=== PATIENT | male | born 1950 | race Caucasian/White ===

== ENCOUNTER → 2019-05-12 10:13 | Outpatient (BNVA) | payer MEDICARE, SELFPAY | PROVIDERS: Family Provider Family Medicine; PCP Family Medicine; Referring Provider Nurse Practitioner Family; Visit Provider Podiatrist Foot & Ankle Surgery | DX: M79.671 Pain in right foot (principal) | CPT/HCPCS: 73630 ==

== ENCOUNTER 2019-05-31 15:50 | Outpatient (CLI) | payer MEDICARE, SELFPAY ==
--- NOTE | 2019-05-31 16:30 | USCV_ITS ---
MaiteLes Age: 68 Gender: M : 1950 Exam Date: 05/31/2019 15:53 Ordering Phys: Cesar Nelson DPM Technologist: Exam Location: [facility] – [place]_ Indication: DIMENISHED PULSES RIGHT LEFT Brachial 127.00 mmHg Brachial 138.00 mmHg Pressure (mmHg) Waveform Pressure (mmHg) Waveform 157.00 Above Knee 137.00 175.00 Below Knee 140.00 172.00 FINAL INSPECTOR 175.00 152.00 DPA 156.00 1.25 Ankle/Brachial Index 1.27 102.00 Pre-Exercise Toe Pressure 101.00 0.74 Pre-Exercise Toe/Brachial Index 0.73 FINDINGS Normal ABIs and TBIs bilaterally Normal PVR waveforms bilaterally CONCLUSIONS No evidence of any significant arterial obstruction, based on the above findings. Dr Ernestina Angel MD [facility] (Electronically Signed) Final Date: 01 June 2019 08:49 S
== END 2019-05-31 15:51 | disposition home or self-care (01) ==
LOC: US 15:51
PROVIDERS: Family Provider Family Medicine; PCP Family Medicine; Visit Provider Podiatrist Foot & Ankle Surgery
DX: I73.9 Peripheral vascular disease, unspecified (principal); R09.89 Other specified symptoms and signs involving the circulatory and respiratory systems
CPT/HCPCS: 93923

== ENCOUNTER 2021-07-25 20:22 | Emergency (ER) | payer MEDICARE, SELFPAY ==
[2021-07-25 21:51] VITALS: BP 145/87; PULSE 62; RESP 20; TEMP 36.7; O2SAT 98; BMI 32.8
--- NOTE | 2021-07-25 22:12 | CTR_ITS ---
PROCEDURE INFORMATION: Exam: CT Abdomen And Pelvis Without Contrast Exam date and time: 07/25/2021 10:45 PM Age: 70 years old Clinical indication: Abdominal pain; Localized; Patient HX: C/O left flank/llq pain with hematuria. History of stones. ; Additional info: Flank pain TECHNIQUE: Imaging protocol: Computed tomography of the abdomen and pelvis without contrast. Radiation optimization: All CT scans at this facility use at least one of these dose optimization techniques: automated exposure control; mA and/or kV adjustment per patient size (includes targeted exams where dose is matched to clinical indication); or iterative reconstruction. COMPARISON: CT Abdomen/Pelvis Renal [id number] 10/27/2016 11:44 AM RADIATION DOSE METRICS: Total DLP (mGy-cm): 1738.1 FINDINGS: Lungs: The visualized lung woodard show mild bibasilar atelectasis. Liver: The liver is normal in size and homogeneous density. In the left liver lobe, there is a 12 mm simple appearing cyst. Gallbladder and bile ducts: The gallbladder is contracted but appears otherwise normal. Pancreas: Normal size and homogeneous density. No ductal dilation. Spleen: Normal. No splenomegaly. Adrenal glands: Normal. No mass. Kidneys and ureters: There is mild left hydronephrosis and proximal hydroureter down to the mid left ureter at the level of the aortic bifurcation and iliac crests, where there is a 6 x 5 mm partially obstructive calculus. In the lower pole left kidney, there are 2 nonobstructive calculi measuring 8 and 7 mm in diameter. Stomach and bowel: There is no evidence of small bowel or colonic obstruction. Appendix: No evidence of appendicitis. Intraperitoneal space: No free air. No significant fluid collection. Vasculature: There is mild atherosclerotic calcification of the abdominal aorta and its branches without aneurysm. Lymph nodes: No enlarged retroperitoneal or mesenteric lymph nodes. Urinary bladder: The bladder shows a normal contour and is free of calcific opacities. Reproductive: The prostate measures 4.6 cm in transverse dimension. Bones/joints: No acute fracture. There is a prominent Schmorl's node on the inferior endplate of L3. Facet arthrosis at L4-L5 and L5-S1. There is mild grade 1 anterolisthesis of L4 on L5. Soft tissues: There are small bilateral nonobstructing inguinal hernias containing adipose tissue. CT/CT kidney stone [id number] IMPRESSION: 1. A 6 x 5 mm partially obstructive calculus in the mid left ureter. 2. Additional nonobstructive 7 and 8 mm calculi in the lower pole of the left kidney. 3. Small bilateral inguinal hernias containing adipose tissue.
[2021-07-25 22:15] VITALS: BP 136/92; PULSE 59; RESP 18; O2SAT 95
--- NOTE | 2021-07-25 22:21 | W.ED.ABDPA2 ---
HPI - Abdominal Pain General: Chief Complaint: Abdominal Pain Stated Complaint: low back pain Time Seen by Provider: 07/25/21 22:08 Source: patient Mode of arrival: ambulatory Limitations: no limitations History of Present Illness: 70-year-old male has had a history of kidney stones in the past he states started having some pain last night did not improve it is worsened throughout the day states pain is a left flank goes in his left groin rates his pain a 7 out of 10 he has had some nausea denies any vomiting has had a hematuria denies any worsening improving factors. Associated Symptoms: Reports hematuria; Denies chills, diarrhea, fever(s), nausea and vomiting Review of Systems Const: Denies: fever(s), chills, body aches or change in appetite Eyes: Denies: blurry vision or eye discomfort ENMT: Denies: throat pain or dental pain Card: Denies: chest pain Resp: Denies: dyspnea GI: Denies: abdominal pain, nausea, vomiting or diarrhea : Reports: flank pain and hematuria Musc: Denies: neck pain or back pain Skin/Breast: Denies: rash Neuro: Denies: headache(s) Psych: Denies: depression Angelito/Lymph: Denies: easy bruising All/Imm: Denies: urticaria PFSH ED PFSH: Medical History ASHD (arteriosclerotic heart disease) Atypical chest pain HTN (hypertension) Hyperlipidemia Uric acid urolithiasis Surgical History S/P rotator cuff repair Family History Father , AGE 50 CAD (coronary artery disease) Myocardial infarction Mother , AGE 60 Diabetes Social History Smoking and tobacco status: never smoked Alcohol intake: never Household members: spouse Marital status: Current occupational status: retired Physical Exam Const: COMMON NORMALS: no acute distress, patient oriented x3 and healthy appearing HENMT: COMMON NORMALS: normocephalic and atraumatic HEAD & SCALP: normocephalic and atraumatic Eye: COMMON NORMALS: Equal, round and reactive pupils present and EOMs intact bilaterally PUPIL: Yes Equal, round and reactive pupils present Neck/C-Spine: COMMON NORMALS: full ROM and supple Chest: COMMONS NORMALS: normal inspection of the chest and normal palpation of entire chest wall Resp: COMMON NORMALS: normal respiratory effort, No retractions, No use of accessory muscles and clear to auscultation bilaterally AUSCULTATION: clear to auscultation bilaterally Cardio: COMMON NORMALS: regular rate, regular rhythm and No murmurs present (Cardio) RATE: regular rate RHYTHM: regular rhythm GI: COMMON NORMALS: Normal to inspection, nondistended, normoactive bowel sounds present, Soft to palpation, non-tender and no masses PALPATION: Yes Soft to palpation Extremity: COMMON NORMALS: normal to inspection and full ROM Neuro: COMMON NORMALS: patient oriented x3, moves all extremities and no focal motor deficits Psych: COMMON NORMALS: mental status grossly normal, Normal thought process present and cooperative THOUGHT PROCESS: Normal thought process present Skin: COMMON NORMALS: no rashes or lesions noted and no wounds GENERAL SKIN EXAM: no rashes or lesions noted Course Vital Signs: Vital signs: Vital Signs Temperature 98.1 F 07/25/21 21:51 Pulse Rate 67 07/25/21 23:56 Respiratory Rate 18 07/25/21 23:56 Blood Pressure 126/80 07/25/21 23:56 Pulse Oximetry 92 07/25/21 23:56 MDM - Abdominal Pain Medical Decision Making Patient presents with a kidney stone his pain is much improved. Has an appoint with Dr. Benítez tomorrow is to follow-up then he is stable for discharge. Lab Data : 07/25/21 22:24 07/25/21 22:24 Labs/Radiology: Radiology Impressions Abdomen/Pelvis CT 07/25/21 22:12 IMPRESSION: 1. A 6 x 5 mm partially obstructive calculus in the mid left ureter. 2. Additional nonobstructive 7 and 8 mm calculi in the lower pole of the left kidney. 3. Small bilateral inguinal hernias containing adipose tissue. Laboratory Results WBC 15.2 10^3/uL (4.0-10.0) H 07/25/21 22:24 RBC 5.81 10^6/uL (4.1-5.3) H 07/25/21 22:24 Hgb 17.9 g/dL (11.7-16.6) H 07/25/21:24 Hct 52.8 % (42.0-52.0) H 07/25/21:24 MCV 90.9 fl (80-94) 07/25/21:24 MCH 30.8 pg (28.0-34.0) 07/25/21:24 MCHC 33.9 g/dL (30.0-36.0) 07/25/21: RDW 13.7 % (12.1-15.1) 07/25/21: Plt Count 137 10^3/cmm (130-400) 07/25/21: MPV 10.8 fL (7.4-10.4) H 07/25/21: Neut % (Auto) 79.6 % 07/25/21: Lymph % (Auto) 10.0 % 07/25/21: [place] % (Auto) 8.9 % 07/25/21: Eos % (Auto) 0.7 % 07/25/21: Baso % (Auto) 0.4 % 07/25/21: Neut # (Auto) 12.06 10^3/uL (1.8-7.7) H 07/25/21: Lymph # (Auto) 1.5 10^3/uL (0.8-4.8) 07/25/21: [place] # (Auto) 1.4 10^3/uL (0.2-0.9) H 07/25/21:24 Eos # (Auto) 0.1 10^3/uL (0.0-0.8) 07/25/21: Baso # (Auto) 0.1 10^3/uL (0.0-0.1) 07/25/21: Nucleated RBC % (auto) 0 % 07/25/21: Nucleated RBCs # 0.0 /100WBC 07/25/21 22:24 Sodium 136 mmol/L (136-145) 07/25/21:24 Potassium 4.0 mmol/L (3.5-5.1) 07/25/21:24 Chloride 102 mmol/L (98-107) 05/12/22 22:24 Carbon Dioxide 22 mmol/L (22-29) 07/25/21 22:24 Anion Gap 16.0 (5-19) 07/25/21 22:24 BUN 27 mg/dL (8-23) H 07/25/21 22:24 Creatinine 1.7 mg/dL (0.7-1.2) H 07/25/21 22:24 GFR Calculation 40.2 mL/min (90-130) L 07/25/21 22:24 Glucose 108 mg/dL (65-115) 07/25/21 22:24 Calculated Osmolality 288 mOsm/kg (285-295) 07/25/21 22:24 Calcium 9.3 mg/dL (8.5-10.5) 07/25/21 22:24 Total Bilirubin 0.7 mg/dL (0.15-1.2) 07/25/21 22:24 AST 26 U/L (0-40) 07/25/21 22:24 ALT 37 U/L (0-41) 07/25/21 22:24 Alkaline Phosphatase 49 IU/L (40-130) 07/25/21 22:24 Total Protein 7.3 g/dL (6.6-8.7) 07/25/21 22:24 Albumin 4.4 g/dL (3.5-5.2) 07/25/21 22:24 Globulin 2.9 g/dL (1.3-4.6) 07/25/21 22:24 Urine Color Brown (Yellow) 07/25/21 23:19 Urine Appearance Cloudy (CLEAR) 07/25/21 23:19 Urine pH 5 (5-7) 07/25/21 23:19 Ur Specific [place] 1.020 (1.005-1.030) 07/25/21 23:19 Urine Protein 1+ (Negative) H 07/25/21 23:19 Urine Glucose (UA) Norm (Normal) 07/25/21 23: Urine Ketones Negative (Negative) 07/25/21 23:19 Urine Blood 3+ (Negative) H 07/25/21 23:19 Urine Nitrate Negative (Negative) 07/25/21 23:19 Urine Bilirubin Neg (Negative) 07/25/21 23: Urine Urobilinogen Norm mg/dL (Negative) 05/12/22 23:19 Ur Leukocyte Esterase Trace (Negative) H 07/25/21 23:19 Urine RBC Too numerous to cnt /hpf (0-2) H 07/25/21 23:19 Urine WBC 0-4 /hpf (0-5) H 07/25/21 23:19 Ur Squamous Epith Cells 0-4 /hpf (0-5) H 07/25/21 23:19 Amorphous Sediment Not Reportable 07/25/21 23:19 Urine Bacteria Trace /hpf (NONE) 07/25/21 23:19 Discharge Plan Discharge Patient Disposition: Home Clinical Impression: Kidney stone Condition: Stable Prescriptions: New hydrocodone-acetaminophen 5-325 mg tablet 1 tab PO Q6H PRN (Reason: pain) Qty: 14 0RF ondansetron 4 mg tablet,disintegrating 4 mg PO Q6H PRN (Reason: nausea and vomiting) Qty: 14 0RF No Action albuterol sulfate [ProAir HFA] 90 mcg/actuation HFA aerosol inhaler 2 puff INHALATION Q6H PRN0RF aspirin [Aspir-81] 81 mg tablet,delayed release (DR/EC) 81 mg PO DAILY 0RF omeprazole 40 mg capsule,delayed release(DR/EC) 40 mg PO DAILY 0RF coenzyme Q10 [Co Q-10] 100 mg capsule 100 mg PO DAILY 0RF isosorbide mononitrate 30 mg tablet extended release 24 hr 15 mg PO BID Qty: 90 3RF potassium citrate 10 mEq (1,080 mg) tablet extended release 10 meq PO BID Qty: 60 3RF rosuvastatin 20 mg tablet 20 mg PO DAILY Qty: 90 3RF metoprolol tartrate 25 mg tablet 25 mg PO DAILY Qty: 90 1RF valsartan 160 mg tablet 160 mg PO DAILY Qty: 90 3RF hydrochlorothiazide 25 mg tablet 12.5 mg PO DAILY Qty: 45 3RF Discharge Orders: Discharge ED (Routine); Ordered 07/26/21 Ordered By: Bam Sy Referrals: Madi Benítez MD [Physician] - 1-3 days Mejia Leal MD [Primary Care Provider] - Discharge Diet: Advance as tolerated Discharge Activity: Resume usual activity Patient Instructions: Kidney Stones (ED), Opioid Safety Coding Level of Care Code ED Shaper Operator for Chg Fwd Exam Comprehensive
[2021-07-25 22:31] VITALS: RESP 18; O2SAT 96
[2021-07-25] MEDS: HYDROmorphone 1 mg/mL INJ 1 mL 0.5 MG IVP (22:31)
[2021-07-25] MEDS: ondansetron 2 mg/ML SDV 2 mL 4 MG IVP (22:31)
[2021-07-25] MEDS: sodium chloride 0.9% 1,000 ML 999 ML IV (22:32)
[2021-07-25 22:33] LABS: Basophils # 0.1 10^3/uL (0.0-0.1); Basophils % 0.4 %; Eosinophils # 0.1 10^3/uL (0.0-0.8); Eosinophils % 0.7 %; Hematocrit 52.8 % (42.0-52.0); Hemoglobin 17.9 g/dL (11.7-16.6); Lymphocytes # 1.5 10^3/uL (0.8-4.8); Mean Corpuscular HGB Conc 33.9 g/dL (30.0-36.0); Mean Corpuscular Hemoglobin 30.8 pg (28.0-34.0); Mean Corpuscular Volume 90.9 fl (80-94); Mean Platelet Volume 10.8 fL (7.4-10.4); Monocytes # 1.4 10^3/uL (0.2-0.9); Monocytes % 8.9 %; Neutrophils # 12.06 10^3/uL (1.8-7.7); Neutrophils % 79.6 %; Nucleated Red Blood Cells % 0 %; Platelet Count 137 10^3/cmm (130-400); Red Blood Count 5.81 10^6/uL (4.1-5.3); Red Cell Distribution Width 13.7 % (12.1-15.1); White Blood Count 15.2 10^3/uL (4.0-10.0)
[2021-07-25 22:51] LABS: Alanine Aminotransferase 37 U/L (0-41); Albumin Level 4.4 g/dL (3.5-5.2); Alkaline Phosphatase 49 IU/L (40-130); Aspartate Amino Transferase 26 U/L (0-40); Blood Urea Nitrogen 27 mg/dL (8-23); Calcium 9.3 mg/dL (8.5-10.5); Carbon Dioxide 22 mmol/L (22-29); Chloride 102 mmol/L (98-107); Globulin 2.9 g/dL (1.3-4.6); Glomerular Filtration Rate 40.2 mL/min (90-130); Glucose 108 mg/dL (65-115); Osmolality Calculated 288 mOsm/kg (285-295); Sodium 136 mmol/L (136-145); Total Bilirubin 0.7 mg/dL (0.15-1.2); Total Protein 7.3 g/dL (6.6-8.7)
[2021-07-25 22:56] VITALS: BP 123/91; PULSE 65; RESP 20; O2SAT 93
[2021-07-25 23:26] VITALS: BP 122/77; PULSE 67; RESP 18; O2SAT 95
[2021-07-25 23:56] VITALS: BP 126/80; PULSE 67; RESP 18; O2SAT 92
[2021-07-26 00:04] LABS: Add Urine Microscopic? YES; Bilirubin Urine Neg (Negative); Blood Urine 3+ (Negative); Glucose Urine UA Norm (Normal); Ketones Urine Negative (Negative); Leukocyte Esterase Urine Trace (Negative); Nitrate Urine Negative (Negative); Protein Urine 1+ (Negative); Urine Appearance Cloudy (CLEAR); Urine Color Brown (Yellow); Urobilinogen Urine Norm (Negative); pH Urine 5 (5-7)
[2021-07-26 00:05] LABS: Add Urine Culture? Yes; Bacteria Urine TRACE /hpf; RBC Urine TOO NUMEROUS TO CNT /hpf (0-2); Squamous Epithelial Cell Urine 0-4 /hpf (0-5); WBC Urine 0-4 /hpf (0-5)
[2021-07-26] MEDS: HYDROcodone-acetaminophen 5-325 mg Tablet 1 TAB PO (00:29)
[2021-07-26 00:30] VITALS: BP 118/72; PULSE 66; RESP 18; O2SAT 94
== END 2021-07-26 00:30 | disposition home or self-care (01) ==
PROVIDERS: Emergency Provider Emergency Medicine; PCP Family Medicine
DX: N20.0 Calculus of kidney (principal)
CPT/HCPCS: 74018; 74176; 80053; 81001; 81003; 85025; 87086; 96361; 96374; 96375; 99213; 99284; J1170; J2405; J7030

== ENCOUNTER 2021-07-26 09:43 | Outpatient (CLI) | payer MEDICARE, SELFPAY ==
--- NOTE | 2021-07-26 09:57 | XR_ITS ---
WS: [id number] XR KUB [id number] REASON FOR EXAM: Kidney Stone FINDINGS: The calculi in the lower pole the left kidney demonstrated on the CT scan of the previous day are not readily identifiable on the abdomen film. The mid/distal left ureteral calculus may be represented by vague ovoid density just inferior to the L5 left transverse process. Calcifications in the pelvis appear vascular. No other significant abnormality. XR/XR KUB [id number] IMPRESSION: Unable to identify the left lower pole calculi. Possible identification of the mid/distal left ureteral calculus seen on the pr evious CT scan.
== END 2021-07-26 09:44 | disposition home or self-care (01) ==
LOC: RAD 09:47
PROVIDERS: PCP Family Medicine; Visit Provider Urology
DX: N20.0 Calculus of kidney (principal); N20.9 Urinary calculus, unspecified; N20.1 Calculus of ureter
CPT/HCPCS: 74018; 81003; 99213

== ENCOUNTER 2021-08-15 | Outpatient (CLI) | payer MEDICARE, SELFPAY | END 2021-08-15 23:59 | disposition home or self-care (01) | LOC: RAD 10-14 16:30 | PROVIDERS: PCP Family Medicine; Visit Provider Urology | DX: N20.1 Calculus of ureter (principal) | CPT/HCPCS: 81003; 99213 ==

== ENCOUNTER 2021-08-15 09:40 | Outpatient (CLI) | payer MEDICARE, SELFPAY ==
--- NOTE | 2021-08-15 09:46 | XRR_ITS ---
PROCEDURE INFORMATION: Exam: XR Abdomen Exam date and time: 08/15/2021 10:08 AM Age: 70 years old Clinical indication: Condition or disease; Other: Uric acid urolithiasis TECHNIQUE: Imaging protocol: XR of the abdomen. Views: Frontal supine view of the abdomen. 1 View. COMPARISON: CR XR KUB [id number] 07/26/2021 9:57 AM FINDINGS: Gastrointestinal tract: Bowel gas pattern is unremarkable. No sign of obstruction. Vasculature: There is a 10 mm calcification projecting over the lower pole of left kidney. No calcifications on the right. Multiple pelvic phleboliths are stable compared to 07/26/2021. A ureteral stone is not visible. Bones/joints: Bones are unremarkable. XR/XR KUB [id number] IMPRESSION: 1. The left ureteral stone visible on CT of 07/25/2021 is not visible currently. 2. Left nephrolithiasis.
== END 2021-08-15 09:41 | disposition home or self-care (01) ==
LOC: RAD 09:42
PROVIDERS: PCP Family Medicine; Visit Provider Urology
DX: N20.2 Calculus of kidney with calculus of ureter (principal)
CPT/HCPCS: 74018; 81003; 99213

== ENCOUNTER 2021-08-29 09:43 | Outpatient (CLI) | payer MEDICARE, SELFPAY ==
--- NOTE | 2021-08-29 09:45 | CT_ITS ---
WS: [id number] CT ABDOMEN AND PELVIS NONCONTRAST HISTORY: URIC ACID UROLITHIASIS TECHNIQUE: Imaging performed through the abdomen and pelvis. Coronal and sagittal reformats are submi tted. All CT scans at [facility] use at least one of these dose optimization techniques: auto mated exposure control; mA and/or kV adjustment per patient size (includes targeted exams where dose is matched to clinical indication); or iterative reconstruction. DLP: 1142.31 mGy.cm COMPARISON: 07/25/2021 Lower thorax: Lung bases are clear. Visualized heart is normal. No hiatal hernia. Liver: Normal size liver. 10 mm cyst LEFT lobe of the liver. No bile duct dilatation. Gallbladder: Normal gallbladder. Pancreas: Normal size and attenuation. Normal pancreatic duct. No pancreatitis or mass. Spleen: Mild splenomegaly similar to the prior study. Spleen measures 14.1 cm. Adrenal glands: Normal. No mass. Right kidney: Mild perinephric stranding. No renal stone or obstruction. Left kidney: Mild perinephric stranding. The extent of perinephric stranding has improved since 2021. The hydronephrosis has also resolved. There is a cluster of calcifications in the lower pole me asuring 14 x 6 mm. Previously described calcification in the mid ureter has migrated inferiorly. Ther e are now 2 adjacent calcifications in the distal ureter. Calcifications extend over a length of 14 m m. Only a single calcification was identified in the ureter on the prior study. Aorta: Mild atherosclerosis abdominal aorta with no aneurysm. No free fluid, intraperitoneal air or significant lymphadenopathy. GI tract: Normal appendix. No GI tract obstruction or diverticulosis. Abdominal wall: Negative. No hernia. Pelvis: Well-distended urinary bladder. Mild prostate hypertrophy. Inguinal canals are patent bilater ally containing fat. Osseous structures: Facet joint arthritis at L4-5 and L5-S1. No fractures. CT/CT kidney stone [id number] IMPRESSION: 1. Resolved LEFT hydronephrosis since 07/25/2021. 2. There are now 2 adjacent calcifications in the distal LEFT ureter. The larg er calcification has inferiorly migrated and there is an additional new adjacen t calcification. The overall length of calcific burden in the distal ureter is 14 mm. 3. Additional cluster of calcifications lower pole LEFT kidney measures 14 x 6 mm. 4. Normal appendix.
== END 2021-08-29 09:44 | disposition home or self-care (01) ==
LOC: RAD 09:46
PROVIDERS: PCP Family Medicine; Visit Provider Urology
DX: N20.9 Urinary calculus, unspecified (principal); N20.1 Calculus of ureter
CPT/HCPCS: 74176; 81003; 99213

== ENCOUNTER → 2021-09-17 12:00 | Outpatient (BNVA) | payer MEDICARE, SELFPAY | PROVIDERS: PCP Family Medicine; Visit Provider Urology | DX: N20.1 Calculus of ureter (principal) | CPT/HCPCS: 88300 ==

== ENCOUNTER → 2021-09-25 13:43 | Outpatient (BNVA) | payer MEDICARE, SELFPAY | PROVIDERS: PCP Family Medicine; Visit Provider Nurse Practitioner Family | DX: Z53.9 Procedure and treatment not carried out, unspecified reason (principal); N20.1 Calculus of ureter | CPT/HCPCS: 82365 ==

== ENCOUNTER 2021-10-04 10:00 | Outpatient (CLI) | payer MEDICARE, SELFPAY | END 2021-10-04 10:01 | disposition home or self-care (01) | LOC: RAD 10:00 | PROVIDERS: PCP Family Medicine; Visit Provider Urology | DX: N20.1 Calculus of ureter (principal); N20.0 Calculus of kidney | CPT/HCPCS: 74018; 81003; 99213 ==

== ENCOUNTER → 2022-02-20 11:45 | Outpatient (BNVA) | payer MEDICARE, SELFPAY | PROVIDERS: PCP Family Medicine; Visit Provider Internal Medicine Cardiovascular Disease | DX: I10 Essential (primary) hypertension (principal); E78.49 Other hyperlipidemia; R07.89 Other chest pain; N20.1 Calculus of ureter | CPT/HCPCS: 99213 ==

== ENCOUNTER → 2022-11-27 12:07 | Outpatient (BNVA) | payer MEDICARE, SELFPAY | PROVIDERS: PCP Family Medicine; Visit Provider Internal Medicine Cardiovascular Disease | DX: I25.10 Atherosclerotic heart disease of native coronary artery without angina pectoris (principal); E78.49 Other hyperlipidemia; I10 Essential (primary) hypertension; R07.89 Other chest pain | CPT/HCPCS: 99213 ==

== ENCOUNTER → 2023-05-27 11:14 | Outpatient (BNVA) | payer MEDICARE, SELFPAY | PROVIDERS: PCP Family Medicine; Visit Provider Internal Medicine Cardiovascular Disease | DX: I25.10 Atherosclerotic heart disease of native coronary artery without angina pectoris (principal); E78.49 Other hyperlipidemia; I10 Essential (primary) hypertension | CPT/HCPCS: 99213 ==

== ENCOUNTER → 2024-01-26 15:33 | Outpatient (BNVA) | payer MEDICARE, SELFPAY | PROVIDERS: PCP Family Medicine; Visit Provider Internal Medicine Cardiovascular Disease | DX: I25.10 Atherosclerotic heart disease of native coronary artery without angina pectoris (principal); I10 Essential (primary) hypertension; J45.909 Unspecified asthma, uncomplicated; E78.5 Hyperlipidemia, unspecified | CPT/HCPCS: 99213 ==

== ENCOUNTER → 2025-02-16 09:48 | Outpatient (BNVA) | payer MEDICARE, SELFPAY | PROVIDERS: PCP Family Medicine; Visit Provider Podiatrist Foot & Ankle Surgery | DX: L60.0 Ingrowing nail (principal) | CPT/HCPCS: 11730; 11750 ==

== ENCOUNTER → 2025-02-22 16:44 | Outpatient (BNVA) | payer MEDICARE, SELFPAY | PROVIDERS: PCP Family Medicine; Visit Provider Internal Medicine Cardiovascular Disease | DX: R07.9 Chest pain, unspecified (principal) | CPT/HCPCS: 93005 ==

== ENCOUNTER 2025-03-07 14:35 | Outpatient (CLI) | payer MEDICARE, SELFPAY ==
--- NOTE | 2025-03-07 15:00 | USCV_ITS ---
Les Arora Age: 74 Gender: M : 1950 Exam Date: 03/07/2025 15:09 Ordering Phys: Marcel Diane MD ([email or web address]) Technologist: MIRZA Exam Location: [facility] – [place] Indication: Palpitations BP: 150 / 90 HR: 74 Rhythm: Sinus Technical Quality: Adequate MEASUREMENTS (Male / Female) Normal Values 2D ECHO LV Diastolic Diameter PLAX 5.4 cm 4.2 - 5.9 / 3.9 - 5.3 cm IVS Diastolic Thickness 0.6 cm 0.6 - 1.0 / 0.6 - 0.9 cm IVS Systolic Thickness 0.8 cm LVPW Diastolic Thickness 0.9 cm 0.6 - 1.0 / 0.6 - 0.9 cm LVPW Systolic Thickness 1.1 cm LVOT Diameter 2.2 cm LV Ejection Fraction 2D Teich 27.3 % LV Ejection Fraction MOD 4C 65.6 % LV Ejection Fraction MOD 2C 52.6 % LV Ejection Fraction 2C AL 52.0 % LA Diameter 3.4 cm RA Systolic Volume 4C AL 35.6 ml RA Systolic Volume 4C MOD 34.1 ml LA Sys Volume AL 46.5 cm cubed LA Sys Volume Index AL 20.9 cm cubed/m squared Aorta at Sinotubular Diameter 2.8 cm IVC Diameter 1.7 cm M-MODE LA Ao Ratio MM 1.3 AV Cusp Separation MM 1.4 cm DOPPLER AV Peak Velocity 129.0 cm/s LVOT Peak Velocity 110.0 cm/s AV Area Cont Eq vti 3.0 cm squared AV Area Cont Eq pk 3.2 cm squared MV Peak Velocity 124.0 cm/s MV Area PHT 4.8 cm squared Mitral E to A Ratio 0.7 TR Peak Velocity 124.0 cm/s TR Peak Gradient 6.2 mmHg TV Peak E Velocity 75.0 cm/s PV Peak Velocity 91.0 cm/s FINDINGS Left Ventricle Normal left ventricular size, systolic function and wall thickness, with no regional wall motion abnormalities. Left ventricular ejection fraction is estimated at 60 %. Grade I/IV diastolic dysfunction (abnormal relaxation filling pattern), normal to mildly elevated filling pressures. Right Ventricle Normal right ventricular size and systolic function. Right Atrium Normal right atrial size. Left Atrium Normal left atrial size. IA Septum Normal appearance of the interatrial septum. Mitral Valve Moderately thickened mitral valve. No mitral valve stenosis. Trace mitral valve regurgitation. Aortic Valve Moderate aortic valve calcification. Aortic valve sclerosis. Trace aortic valve regurgitation. Tricuspid Valve Normal tricuspid valve structure. No tricuspid valve stenosis or regurgitation. Normal pulmonary pressure. Pulmonic Valve Trace pulmonary valve regurgitation. Pericardium No pericardial effusion. Aorta Normal diameter of the aortic root and ascending thoracic aorta. IVC Normal IVC diameter. CONCLUSIONS Normal left ventricular size, systolic function and wall thickness, with no regional wall motion abnormalities. Left ventricular ejection fraction is estimated at 60 %. Grade I/IV diastolic dysfunction (abnormal relaxation filling pattern), normal to mildly elevated filling pressures. Moderate aortic valve calcification. Aortic valve sclerosis. Trace aortic valve regurgitation. Moderately thickened mitral valve. No mitral valve stenosis. Trace mitral valve regurgitation. There is no pericardial effusion. Right atrial pressure is around 5 mm of mercury. Marcel Diane MD (Electronically Signed) Final Date: 18 March 2025 16:21 S
== END 2025-03-07 14:36 | disposition home or self-care (01) ==
LOC: RAD 14:37
PROVIDERS: PCP Family Medicine; Visit Provider Internal Medicine Cardiovascular Disease
DX: R00.2 Palpitations (principal); R93.1 Abnormal findings on diagnostic imaging of heart and coronary circulation; I05.9 Rheumatic mitral valve disease, unspecified; I35.8 Other nonrheumatic aortic valve disorders
CPT/HCPCS: 93306